=== PATIENT | male | born 1970 | race Caucasian/White ===

== ENCOUNTER 2017-02-08 19:58 | Emergency (ER) | payer OTHER ==
[2017-02-08 21:02] LABS: #Basophils 0.1 thou/uL (0.0-0.2); #Eosinphils 0.1 thou/uL (0.0-0.7); #Lymphocytes 1.6 thou/uL (1.20-3.40); #Monocytes 0.5 thou/uL (0.11-0.59); #Neutrophils 4.6 thou/uL (1.40-6.50); %Basophils 0.9 % (0.0-1.0); %Eosinophils 1.1 % (0.0-10.0); %Lymphocytes 23.5 % (21.0-51.0); %Monocytes 7.4 % (0.0-10.0); Hematocrit 45.7 % (42.0-52.0); Mean Platelet Volume 7.2 fL (7.4-10.4); Red Blood Cell (RBC) Count 5.13 mill/uL (4.70-6.10); White Blood Cell (WBC) Count 6.9 thou/uL (4.8-10.8)
[2017-02-08 21:25] LABS: ALT (SGPT) 25 U/L (8-55); AST (SGOT) 19 U/L (5-34); Alkaline Phosphatase 60 U/L (40-150); Anion Gap 13 mmol/L (10-20); BUN (Urea Nitrogen) 11 mg/dL (8.9-20.6); Bilirubin, Total 0.5 mg/dL (0.2-1.2); Calc. Creatinine Clearance 0 mL/min (70-130); Calcium 9.3 mg/dL (7.8-10.44); Carbon Dioxide 23 mmol/L (22-29); Chloride 109 mmol/L (98-107); Estimated GFR-MDRD Greater than 90; Globulin 2.8 g/dL (2.4-3.5); Protein, Total 6.9 g/dL (6.0-8.3)
[2017-02-08] MEDS ORDERED: Ketorolac Tromethamine 30 MG/ML VIAL ONE (22:14)
[2017-02-08] MEDS ORDERED: Diazepam 5 MG TAB ONE (22:14)
--- NOTE | 2017-02-08 22:38 | RAD ---
LUMBAR SPINE THREE VIEWS: History: Chronic back pain, exacerbated today after working on car. FINDINGS/IMPRESSION: No fracture or subluxation or bony destruction is identified. POS: [facility]
== END 2017-02-09 00:10 | disposition home or self-care (01) ==
LOC: ERS 19:58
DX: M54.5 Low back pain (principal); E78.5 Hyperlipidemia, unspecified; F31.9 Bipolar disorder, unspecified; F41.9 Anxiety disorder, unspecified; F17.290 Nicotine dependence, other tobacco product, uncomplicated
CPT/HCPCS: 36415; 72100; 80053; 85025; 96374; J1885

== ENCOUNTER 2017-08-04 22:44 | Inpatient (IN) | payer OTHER ==
[2017-08-04] MEDS ORDERED: Morphine 4 MG/ML VIAL ONE (23:30)
[2017-08-04 23:43] LABS: #Eosinphils 0.1 thou/uL (0.0-0.7); #Lymphocytes 2.1 thou/uL (1.20-3.40); #Monocytes 0.6 thou/uL (0.11-0.59); #Neutrophils 4.1 thou/uL (1.40-6.50); %Basophils 0.7 % (0.0-1.0); %Eosinophils 1.4 % (0.0-10.0); %Lymphocytes 30.5 % (21.0-51.0); %Monocytes 8.1 % (0.0-10.0); %Neutrophils 59.3 % (42.0-75.0); Hemoglobin 14.9 g/dL (14.0-18.0); Mean Corpuscular HGB CONC 34.2 g/dL (32.0-36.0); Mean Corpuscular Volume 87.8 fl (80.0-94.0); Mean Platelet Volume 7.2 fL (7.4-10.4); Platelet Count 186 thou/uL (130-400); RBC Distribution Width 12.6 % (11.5-14.5); Red Blood Cell (RBC) Count 4.97 mill/uL (4.70-6.10); White Blood Cell (WBC) Count 6.9 thou/uL (4.8-10.8)
[2017-08-05] LABS: ALT (SGPT) 26 U/L (8-55); AST (SGOT) 17 U/L (5-34); Alkaline Phosphatase 51 U/L (40-150); Anion Gap 10 mmol/L (10-20); BUN (Urea Nitrogen) 11 mg/dL (8.9-20.6); Bilirubin, Total 0.4 mg/dL (0.2-1.2); Calc. Creatinine Clearance 0 mL/min (70-130); Calcium 8.6 mg/dL (7.8-10.44); Carbon Dioxide 23 mmol/L (22-29); Chloride 110 mmol/L (98-107); Estimated GFR-MDRD Greater than 90; Globulin 2.2 g/dL (2.4-3.5); Glucose 89 mg/dL (70-105); Lipase 510 U/L (8-78); Potassium 4.1 mmol/L (3.5-5.1); Protein, Total 6.2 g/dL (6.0-8.3); Sodium 139 mmol/L (136-145)
[2017-08-05] MEDS ORDERED: Morphine 4 MG/ML VIAL ONE ×2 (01:50→05:35)
--- NOTE | 2017-08-05 06:53 | CT ---
ABDOMEN AND PELVIS CT NONCONTRAST: NOTE: The patient has reported an IV contrast allergy. INDICATIONS: Abdominal pain, diarrhea, and lethargy for one week. COMPARISON: No prior imaging comparison. FINDINGS: There is no urolithiasis or obstructive uropathy. No pneumoperitoneum or portal venous gas. There i s moderate distention of the gallbladder. Moderate retained fecal material of the colon is present. There is a normal caliber, partially air-filled appendix seen within the right lower quadrant. Mode rate distention of the urinary bladder is demonstrated. No acute pathology at the imaged lung base. Solid abdominal viscera is limited in evaluation with the presence of IV contrast. No acute osseous abnormality evident. IMPRESSION: 1. Normal noncontrast appearance of the appendix. 2. Moderate distention of the gallbladder. Correlate clinically. If there is concern in this regar d, consider gallbladder ultrasound to further evaluate. 3. Moderate retained fecal material of the colon. POS: [facility]
--- NOTE | 2017-08-05 08:48 | ULT ---
PRELIMINARY REPORT/[facility]/EMERGENTY AFTER-HOURS PROCEDURE US Abdomen Limited, Right Upper Quadrant CLINICAL HISTORY: 46 years old, male; Pain and signs and symptoms; Nausea; Abdominal pain; Epigastric; Additionalinfo: Dx: Pancreatitis TECHNIQUE: Real-time ultrasound of the right upper quadrant with image documentation. COMPARISON: No relevant prior studies available. FINDINGS: Liver: Normal. No mass. No intrahepatic bile duct dilation. Gallbladder: A negative sonographic Borjas sign is reported. No gallstones. Common bile duct: Unremarkable as visualized. No stones. No dilation. Pancreas: Unremarkable as visualized. Right kidney: RIGHT kidney measures 10.9 x 5.1 x 4.9 cm. No stones. No hydronephrosis. IMPRESSION: Unremarkable RIGHT upper quadrant ultrasound. Thank you for allowing us to participate in the care of your patient. Dictated and Authenticated by: Ruben Edmondson MD 08/05/2017 5:38 AM Central Time ([place] & [place]) FINAL REPORT EMERGENT AFTER HOURS RIGHT UPPER QUADRANT ULTRASOUND: HISTORY: Right upper quadrant pain. History of pancreatitis. FINDINGS: Real-time imaging of the right upper quadrant is performed. This demonstrates a normal-appearing gal lbladder. The common duct is normal in caliber at 3 mm. Visualized liver parenchyma shows no focal abnormalities. The right kidney is normal in size and not obstructed. The pancreas appears unremark able. IMPRESSION: 1. Unremarkable right upper quadrant ultrasound. 2. This report is in agreement with the temporary report issued by [facility]. POS: [facility]
[2017-08-05 09:01] VITALS: BMI 29.8
[2017-08-05] MEDS ORDERED: Acetaminophen 325 MG TAB PO PRN (09:25)
[2017-08-05] MEDS ORDERED: Ondansetron HCl/PF 4 MG/2 ML Vial IVP PRN (09:25)
[2017-08-05] MEDS ORDERED: Ondansetron ODT 4 MG TAB PO PRN (09:25)
[2017-08-05] MEDS: Dextrose 5 %-0.45 % NaCl 1,000 ML IV SCH ×2 (11:24→21:09)
[2017-08-05] MEDS: Morphine 4 MG/ML VIAL SLOW IVP PRN ×2 (11:25→18:02)
[2017-08-05] MEDS ORDERED: Lidocaine 4% Cream 5 GM TUBE w/ Tegaderm TOP PRN (12:10)
[2017-08-05] MEDS ORDERED: Lidocaine 2% Viscous Solution 20 ML, Aluminum & Magnesium Hydroxide 30 ML, Donnatal Eli... SSW SCH ×3 (12:15)
[2017-08-05] MEDS ORDERED: Pantoprazole 40 MG VIAL IVP SCH (12:15)
[2017-08-05 14:53] LABS: #Basophils 0.1 thou/uL (0.0-0.2); #Eosinphils 0.1 thou/uL (0.0-0.7); #Lymphocytes 1.6 thou/uL (1.20-3.40); #Monocytes 0.4 thou/uL (0.11-0.59); #Neutrophils 2.4 thou/uL (1.40-6.50); %Basophils 1.8 % (0.0-1.0); %Eosinophils 2.3 % (0.0-10.0); %Monocytes 9.2 % (0.0-10.0); %Neutrophils 52.7 % (42.0-75.0); Hemoglobin 14.6 g/dL (14.0-18.0); Mean Corpuscular HGB CONC 32.5 g/dL (32.0-36.0); Mean Corpuscular Hemoglobin 29.2 pg (27.0-31.0); Mean Corpuscular Volume 89.9 fl (80.0-94.0); Mean Platelet Volume 7.5 fL (7.4-10.4); Platelet Count 179 thou/uL (130-400); RBC Distribution Width 12.6 % (11.5-14.5); Red Blood Cell (RBC) Count 4.98 mill/uL (4.70-6.10); White Blood Cell (WBC) Count 4.6 thou/uL (4.8-10.8)
[2017-08-05 15:12] LABS: Anion Gap 8 mmol/L (10-20); BUN (Urea Nitrogen) 13 mg/dL (8.9-20.6); Calc. Creatinine Clearance 157 mL/min (70-130); Calcium 8.7 mg/dL (7.8-10.44); Carbon Dioxide 25 mmol/L (22-29); Chloride 111 mmol/L (98-107); Estimated GFR-MDRD Greater than 90; Glucose 100 mg/dL (70-105); Potassium 3.9 mmol/L (3.5-5.1); Sodium 140 mmol/L (136-145)
--- NOTE | 2017-08-05 17:09 | HP ---
CHIEF COMPLAINT: Abdominal pain and weakness. PRIMARY CARE PHYSICIAN: [facility] physician, no PCP here. HISTORY OF PRESENT ILLNESS: The patient is a very pleasant 46-year-old male with past medical history of seizures and headaches and blindness, who comes into the hospital with complaints of nausea x2 days, abdominal pain, and low- grade fever. The patient's , who was at the bedside, stated that the patient has been having a low-grade fever for the past few days. He has also started having nausea for the past few days; however, no vomiting, no diarrhea. He did have some abdominal discomfort, which started about 2-3 days ago, which was not contributed to with food. Patient stated that his abdominal pain was very sharp, nonradiating. Denies any chills; however, felt a low-grade fever. Denied any chest discomfort or chest pain. Patient states that he had diarrhea actually x2 a couple days ago; however, he is on a stool softener and so he stopped a stool softener and the diarrhea resolved. Patient's stated that he was seen by his PCP a few months back and given patient's anger and mood changes, his recent Topamax dose was increased from 100 mg daily to 200 mg daily, and also his Effexor dose was increased. 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 He has a history of seizures and falls off from the roof. He has had a history of headaches and depression. PAST SURGICAL HISTORY: The patient has had several cysts removal from the knees , collarbone, and neck, which all were benign. He has had cataract removal. He had tonsillectomy and knee surgeries in the past. FAMILY HISTORY: Mother has diabetes. Father had heart disease in the 40s to 60s. SOCIAL HISTORY: The patient was a heavy drinker; however, currently does not drink for the past 12 years. He used to smoke a half a pack a day; however, currently is not smoking. MEDICATIONS: Are as the following, patient takes Topamax 100 mg daily. He takes hydrocodone 1 p.o. t.i.d. He takes Robaxin 750 mg p.o. t.i.d. He takes diclofenac 50 mg b.i.d., clonazepam 0.5 mg b.i.d., venlafaxine 150 mg b.i.d., simvastatin 40 mg q.p.m., lidocaine 1 application topical t.i.d. p.r.n., Colace 100 mg p.o. b.i.d. REVIEW OF SYSTEMS: The following complete review of systems was negative, unless otherwise mentioned in the HPI or below: Constitutional: Weight loss or gain, ability to conduct usual activities. Skin: Rash, itching. Eyes: Double vision, pain. ENT/Mouth: Nose bleeding, neck stiffness, pain, tenderness. Cardiovascular: Palpitations, dyspnea on exertion, orthopnea. Respiratory: Shortness of breath, wheezing, cough, hemoptysis, fever, or night sweats. Gastrointestinal: Poor appetite, abdominal pain, heartburn, nausea, vomiting, constipation, or diarrhea. Genitourinary: Urgency, frequency, dysuria, nocturia. Musculoskeletal: Pain, swelling. Neurologic/Psychiatric: Anxiety, depression. Allergy/Immunologic: Skin rash, bleeding tendency. Except for the ones mentioned in the HPI, everything was negative. LABORATORY DATA: WBC 6.9, hemoglobin of 14.9, hematocrit of 43.7, platelets of 186. No bands are noted. Chemistry gutierrez, sodium of 139, potassium of 4.1, chloride of 110, BUN of 11, creatinine 0.84. Lipase of 510. AST is 17, ALT is 26, bilirubin 0.4, alkaline phosphatase is 51. The patient did have an abdominal-pelvic CAT scan, which indicated normal noncontrast appearance of the appendix, moderate distention of the gallbladder, and moderate retained fecal material of the colon. Then, he also had abdominal right upper quadrant ultrasound, which indicated the liver appears to be normal; gallbladder negative Borjas sign, no gallstones; common bile duct unremarkable, no stones. Pancreas was normal also. ASSESSMENT AND PLAN: The patient is a very pleasant 46-year-old male, who presents to the hospital with complaints of abdominal pain and weakness. 1. Abdominal pain. Patient in the ER was treated as acute pancreatitis. His lipase is very mildly elevated at 510. The patient does not drink alcohol and also he does not have any gallstones, which could not be contributing to possible pancreatitis and his levels are not very high. However, he has been taking non-steroidal antiinflammatory drugs and also has been taking BC powder at home quite frequently, which could contribute to a possible peptic ulcer. We will start patient on Protonix b.i.d. We will also give him some GI cocktail and continue to monitor with some IV hydration. Peptic ulcer can possibly cause increase of lipase. The patient's family history is significant for coronary artery disease. Also, he has been feeling weak. The patient's stated that he had an echocardiogram and carotids done in 05/2015 at [facility]. A nurse was notified to get records from [facility] for the further reports. 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 I will wait until I see those results. 3. Bradycardia. The patient is not on any medications that could possibly cause the bradycardia. We will get an EKG, and after evaluating the echocardiogram, we will decide if patient needs any kind of cardiac intervention. 4. For deep vein thrombosis prophylaxis, we will put patient on subcutaneous heparin. MTDD
[2017-08-05] MEDS: Pantoprazole 40 MG VIAL IVP SCH (21:09)
[2017-08-05] MEDS: Docusate 100 MG CAP PO SCH (21:14)
[2017-08-05] MEDS: Simvastatin 40 MG TAB PO SCH (21:14)
[2017-08-05] MEDS: Venlafaxine HCl XR 150 MG CAP PO SCH (21:14)
[2017-08-05] MEDS: Topiramate 100 MG TAB PO SCH (21:14)
[2017-08-05] MEDS: clonazePAM 0.5 MG TAB PO SCH (21:14)
[2017-08-06] MEDS: Morphine 4 MG/ML VIAL SLOW IVP PRN ×2 (00:32→07:20)
[2017-08-06 05:41] LABS: ALT (SGPT) 21 U/L (8-55); AST (SGOT) 14 U/L (5-34); Albumin 3.8 g/dL (3.5-5.0); Alkaline Phosphatase 51 U/L (40-150); Bilirubin, Direct 0.3 mg/dL (0.1-0.3); Bilirubin, Total 0.7 mg/dL (0.2-1.2); Protein, Total 5.8 g/dL (6.0-8.3)
--- NOTE | 2017-08-06 06:57 | EKG ---
Test Reason : Blood Pressure : / mmHG Vent. Rate : 050 BPM Atrial Rate : 050 BPM P-R Int : 158 ms QRS Dur : 100 ms QT Int : 420 ms P-R-T Axes : 064 015 026 degrees QTc Int : 382 ms Sinus bradycardia Otherwise normal ECG No previous ECGs available Confirmed by MARANDA PANIAGUA ([id number]) on 08/06/2017 6:57:34 AM Referred By: SILVESTRE Confirmed By:MARANDA PANIAGUA
[2017-08-06] MEDS: Dextrose 5 %-0.45 % NaCl 1,000 ML IV SCH (07:21)
[2017-08-06] MEDS: Docusate 100 MG CAP PO SCH ×2 (07:26→21:02)
[2017-08-06] MEDS: Topiramate 100 MG TAB PO SCH ×2 (07:27→21:05)
[2017-08-06] MEDS: Venlafaxine HCl XR 150 MG CAP PO SCH ×2 (07:31→21:05)
[2017-08-06] MEDS: clonazePAM 0.5 MG TAB PO SCH ×2 (07:31→21:02)
[2017-08-06] MEDS: Pantoprazole 40 MG VIAL IVP SCH ×2 (07:31→21:06)
--- NOTE | 2017-08-06 13:49 | PDOC.PN ---
- Subjective Encounter Start Date: 08/06/17 Encounter Start Time: 11:00 Subjective: pt up in bed feels well no complains - Objective Vital Signs & Weight: Vital Signs (12 hours) Temp Pulse Resp BP Pulse Ox 08/06/17 11:28 97.8 F 59 L 18 139/81 99 08/06/17 08:00 97.8 F 59 L 18 127/79 97 08/06/17 05:18 98 F 52 L 18 129/72 95 Weight Weight 220 lb Result Diagrams: 08/05/17 14:45 08/05/17 14:45 Phys Exam - Physical Examination HEENT: PERRLA, moist MMs, sclera anicteric, TM's clear, oral pharynx no lesions , 2+ tonsils Neck: no nodes, no JVD, supple, full ROM Respiratory: no wheezing, no rales, no rhonchi, wheezing present, clear to auscultation bilateral Cardiovascular: RRR, no significant murmur, no rub, gallop, irregular Gastrointestinal: soft, non-tender, no distention, positive bowel sounds Dx/Plan - Plan * 1) abdominal pain * 2) mild elevated lipase possible pancreatitis . plan: pt's abdominal pain has improved with protonix most likely gastritis. Pt states he feels better. will start pt on diet. Pt's echo from [facility] indicates normal ef. if pt tolerates his meal then will discharge in am. Review of Systems - Review of Systems Eyes: negative: Pain, Vision Change, Conjunctivae Inflammation, Eyelid Inflammation, Redness, Other ENT: negative: Ear Pain, Ear Discharge, Nose Pain, Nose Discharge, Nose Congestion, Mouth Pain, Mouth Swelling, Throat Pain, Throat Swelling, Other Respiratory: negative: Cough, Dry, Shortness of Breath, Hemoptysis, SOB with Excertion, Pleuritic Pain, Sputum, Wheezing Cardiovascular: negative: chest pain, palpitations, orthopnea, paroxysmal nocturnal dyspnea, edema, light headedness, other Gastrointestinal: negative: Nausea, Vomiting, Abdominal Pain, Diarrhea, Constipation, Melena, Hematochezia, Other Genitourinary: negative: Dysuria, Frequency, Incontinence, Hematuria, Retention , Other - Medications/Allergies Allergies/Adverse Reactions: Allergies Allergy/AdvReac Type Severity Reaction Status Date / Time Iodinated Contrast- Oral and Allergy Verified 08/05/17 09:01 IV Dye red dye Allergy Verified 08/05/17 09:01 Medications: Current Medications Hydrocodone Bitart/Acetaminophen ([place] 10/325) 1 tab PO TID [facility] Clonazepam (Klonopin) 0.5 mg PO BID [facility] Last Admin: 08/06/17 07:31 Dose: 0.5 mg Docusate Sodium (Colace) 100 mg PO BID [facility] Last Admin: 08/06/17 07:26 Dose: 100 mg Dextrose/Sodium Chloride (D5 1/2 Ns) 1,000 mls @ 100 mls/hr IV .Q10H [facility] Last Admin: 08/06/17 07:21 Dose: 1,000 mls Lidocaine HCl (Lmx 4 Plus) 1 gm TOP TID PRN PRN Reason: Pain Pantoprazole Sodium (Protonix) 40 mg IVP Q12HR [facility] Last Admin: 08/06/17 07:31 Dose: 40 mg Simvastatin (Zocor) 40 mg PO QPM [facility] Last Admin: 08/05/17 21:14 Dose: 40 mg Sodium Chloride (Flush - Normal Saline) 10 ml IVF Q12HR [facility] Last Admin: 08/06/17 07:31 Dose: 10 ml Sodium Chloride (Flush - Normal Saline) 10 ml IVF PRN PRN PRN Reason: Saline Flush Topiramate (Topamax) 50 mg PO BID [facility] Last Admin: 08/06/17 07:27 Dose: 50 mg Venlafaxine HCl (Effexor Xr) 150 mg PO BID [facility] Last Admin: 08/06/17 07:31 Dose: 150 mg
[2017-08-06] MEDS: HYDROcodone/Acetaminophen 10/325 mg Tablet PO SCH ×2 (14:11→21:02)
[2017-08-06] MEDS: Methocarbamol 500 MG TAB PO SCH ×2 (14:11→21:07)
[2017-08-06] MEDS: Simvastatin 40 MG TAB PO SCH (21:05)
[2017-08-07] MEDS: Pantoprazole 40 MG VIAL IVP SCH (09:31)
[2017-08-07] MEDS: HYDROcodone/Acetaminophen 10/325 mg Tablet PO SCH (09:32)
[2017-08-07] MEDS: Methocarbamol 500 MG TAB PO SCH (09:35)
[2017-08-07] MEDS: clonazePAM 0.5 MG TAB PO SCH (09:36)
[2017-08-07] MEDS: Docusate 100 MG CAP PO SCH (09:36)
[2017-08-07] MEDS: Topiramate 100 MG TAB PO SCH (09:37)
[2017-08-07] MEDS: Venlafaxine HCl XR 150 MG CAP PO SCH (09:37)
[2017-08-07 12:49] VITALS: BP 117/73; TEMP 98.7
--- NOTE | 2017-08-07 14:18 | DIS ---
DATE OF ADMISSION: 08/05/2017 DATE OF DISCHARGE: 08/07/2017 DISCHARGE DIAGNOSES: 1. Possible gastritis. 2. Abdominal pain. 3. Elevated lipase. HISTORY OF PRESENT ILLNESS AND HOSPITAL COURSE: The patient is a very pleasant 46-year-old male with a history of retinitis pigmentosa who is blind in both eyes and history of seizures who came in to [facility] with complaints of abdominal pain. The patient underwent a CT of the abdomen and pelvis, and a right upper quadrant ultrasound which did not indicate any acute abnormalities including the g allbladder, which appeared to be normal. The patient did have a mildly elevated lipase around 510. At that time, patient was started on IV hydration. He was initially kept n.p.o.; however, the follow ing day, he was transitioned to a soft diet since his abdominal pain had improved. The patient sagrario ated the soft diet well. He was also put on Protonix b.i.d. His abdomen pain was most likely second kelli to possible gastritis given the patient that he was taking diclofenac and BC powder and some over -the-counter ibuprofen. The patient upon discharge stated that his abdominal pain had completely res olved and he will follow up with his primary care doctor as an outpatient. Since the patient was fou nd to be bradycardic, he had recently undergone an echocardiogram at [facility]. Ec hocardiogram was reviewed by me, EF of 60%-65%. No significant valvular abnormalities were noted. [facility] patient will be discharged home and will follow up with his PCP. DISCHARGE MEDICATIONS: Topamax 200 mg daily, Robaxin 750 mg p.o. t.i.d., clonazepam 0.5 mg b.i.d., v enlafaxine 150 mg b.i.d., simvastatin 40 mg q.p.m., Colace 100 mg b.i.d., Protonix 40 mg b.i.d., and hydrocodone 1 p.o. t.i.d. PHYSICAL EXAMINATION: VITAL SIGNS: 98.4, 58, 16, 117/73, 99% on room air. GENERAL: He is awake, alert, oriented x3, does not appear in distress. CARDIOVASCULAR: S1, S2 present. No murmurs, rubs or gallops. ABDOMEN: Soft, nontender. Bowel sounds are present x2. LUNGS: Clear to auscultation. No rhonchi, wheezes noted. EXTREMITIES: No edema.
== END 2017-08-07 13:42 | disposition home or self-care (01) | DRG 392 ==
LOC: ERS 22:44 → T4-B 08-05 07:34
PROVIDERS: ADMIT Family Medicine; ATTEND Family Medicine
DX: K29.70 Gastritis, unspecified, without bleeding (principal); G40.909 Epilepsy, unspecified, not intractable, without status epilepticus; H54.7 Unspecified visual loss; R74.8 Abnormal levels of other serum enzymes; Z91.041 Radiographic dye allergy status; H35.52 Pigmentary retinal dystrophy; Z87.891 Personal history of nicotine dependence; R00.1 Bradycardia, unspecified
CPT/HCPCS: 36415; 74176; 76705; 80048; 80076; 83690; 85025; 93005; 93010; 96374; 96376; A4216; C9113; J2270